=== PATIENT | female | born 1995 | race Caucasian/White ===

== ENCOUNTER 2023-04-12 15:53 | Emergency (ER) | payer MEDICAID ==
[~2023-04-12] VITALS: Ht 165.1 cm; Wt 91.0 kg
[2023-04-12 16:00] VITALS: TEMP 98.7; O2SAT 98
[2023-04-12 17:16] VITALS: BP 141/78; PULSE 84; RESP 18
[2023-04-12] MEDS: IBUPROFEN 600MG TABLET PO STA (17:16)
[2023-04-12 17:39] LABS: BASOPHILS % 0.5 % (0.0-2.0); EOSINOPHILS % 0.6 % (0.0-5.0); HEMATOCRIT. 37.2 % (36.0-48.0); HEMOGLOBIN. 12.2 g/dL (12.0-16.0); LYMPHOCYTES % 19.7 % (20.0-50.0); MEAN CORPUSCULAR HEMOGLOBIN 29.8 pg (28.0-32.0); MEAN CORPUSCULAR HGB CONC 32.8 g/dL (31.0-37.0); MEAN CORPUSCULAR VOLUME 90.7 fL (81.0-99.0); MEAN PLATELET VOLUME 8.8 fl (7.4-10.4); NEUTROPHILS % 72.2 % (40.0-76.0); PLATELET 313 x1000/uL (130-400); RED BLOOD CELL COUNT 4.09 mill/uL (4.2-5.4); WHITE BLOOD COUNT 8.2 x1000/uL (4.5-11.0)
[2023-04-12 17:53] LABS: ALANINE AMINOTRANSFERASE 10 IU/L (10-49); ALBUMIN 4.4 g/dL (3.2-4.8); ASPARTATE AMINOTRANSFERASE 14 IU/L (<34); BILIRUBIN TOTAL 0.4 mg/dL (0.1-1.0); CALCIUM 8.8 mg/dL (8.7-10.4); CARBON DIOXIDE 27 mEq/L (21-32); CHLORIDE 108 mEq/L (98-107); CREATININE 0.6 mg/dL (0.6-1.0); GLUCOSE 99 mg/dL (70-105); POTASSIUM 4.1 mEq/L (3.5-5.1); PROTEIN TOTAL 7.6 g/dL (6.0-8.3); SODIUM 140 mEq/L (136-145); UREA NITROGEN BLOOD 12 mg/dL (9-23)
[2023-04-12 18:12] LABS: HCG SCREEN NEGATIVE
[2023-04-12 21:41] LABS: CLARITY URINE CLEAR (CLEAR); COLOR URINE YELLOW (YELLOW); GLUCOSE URINE NEGATIVE (NEGATIVE); KETONES URINE NEGATIVE (NEGATIVE); LEUKOCYTE ESTERASE URINE 1+ (NEGATIVE); NITRITE URINE NEGATIVE (NEGATIVE); OCCULT BLOOD URINE 3+ (NEGATIVE); PROTEIN URINE 1+ (NEGATIVE); SPECIFIC GRAVITY URINE 1.029 (1.005-1.030)
[2023-04-12 21:53] LABS: BACTERIA URINE 1+; SQUAMOUS EPITHELIAL CELL URINE 1+ /lpf (RARE/1+)
[2023-04-12] MEDS ORDERED: NITR-87 MT (22:08)
[2023-04-12] MEDS ORDERED: PHEN-815 MT (22:08)
== END 2023-04-13 01:12 | disposition home or self-care (01) ==
LOC: ER 15:53
DX: N39.0 Urinary tract infection, site not specified (principal)
CPT/HCPCS: 36415; 76830; 76856; 80053; 81003; 81025; 84703; 85025; 87077; 99284

== ENCOUNTER 2023-04-17 19:38 | Emergency (ER) | payer MEDICAID ==
[~2023-04-17] VITALS: Ht 165.1 cm; Wt 88.0 kg
[~2023-04-17 19:38] MED LIST: NITR-87 MT; PHEN-815 MT
[2023-04-17 19:45] VITALS: O2SAT 99
[2023-04-17] MEDS: IBUPROFEN 600MG TABLET PO ONE (22:26)
[2023-04-17] MEDS: BACITRACIN ZINC OINT UDPKT TOP ONE (22:26)
[2023-04-17] MEDS: LIDOCAINE HCL/PF 1% 10 MG/ML 5ML VIAL INFIL ONE (22:26)
[2023-04-17] MEDS ORDERED: CEPH500T MT (23:41)
[2023-04-17] MEDS ORDERED: NAPR-681 PO (23:41)
[2023-04-17] MEDS ORDERED: SULF1TAB48 MT (23:41)
[2023-04-17 23:48] VITALS: BP 131/71; PULSE 80; RESP 16; TEMP 98
== END 2023-04-17 23:49 | disposition home or self-care (01) ==
LOC: ER 19:57
DX: L60.0 Ingrowing nail (principal); L03.032 Cellulitis of left toe
CPT/HCPCS: 99284; 11730; J3490